=== PATIENT | male | born 1960 | race Caucasian/White ===

== ENCOUNTER → 2018-03-23 | Outpatient (CLI) | payer OTHER ==
--- NOTE | ~2018-03-23 | O ---
[facility] [place] [address] OPERATIVE REPORT Name: RAEJOLEEN Room #: [facility]#: [id number] Admission: 03/23/18 Attend Phys: Rajat Agee MD Discharge: Date of : 58 Report #: [id number] THIS REPORT FOR: //name// CC: Rodrigue Agee DATE OF SERVICE: 03/23/2018 REFERRING PHYSICIAN: Dr. J Carlos Kidd. REASON FOR REFERRAL: Probable tracheal stenosis. CLINICAL HISTORY: The patient is a 57-year-old white male with past history of tracheostomy. He now presents with increasing dyspnea. 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 CT chest shows narrowing and possible tracheal mass in the proximal trachea. POSTOPERATIVE DIAGNOSES: 1. Proximal tracheal stenosis, moderate. 2. Granulation tissue is noted associated with the tracheal stenosis. 3. Otherwise, the rest of the airways including vocal cords, distal trachea, filomena, right and left mainstem bronchus were normal. DESCRIPTION OF PROCEDURE: Following obtained consent and risks and benefits being explained to the patient, which include infection, bleeding, pneumothorax, procedure performed in the endoscopy suite. The patient was given total of 2 mg of Versed, fentanyl 50 mcg IV push. He also received aerosolized 4% lidocaine to the upper airways. 2% lidocaine was then used to the supraglottic airways along with the airways. A flexible fiberoptic bronchoscope was then introduced without difficulty. The epiglottis was normal, vocal cords normal. Proximal trachea was unremarkable. At about 3 cm below the vocal cords, there appears to be moderate tracheal stenosis. It appears elongated. At the base of the tracheal stenosis, approximately at the site of where the prior tracheostomy was placed, there is a granulation tissue obstructing about 70% of the proximal tracheal lumen. Distally, the trachea was normal. Filomena was normal. Right and left mainstem bronchus was normal. No biopsy or washing or brushing was performed. RECOMMENDATIONS: The patient will be referred to a tertiary center for management of tracheal stenosis and probable granulation tissue. [address] [address] OPERATIVE REPORT Name: JOLEEN RAE Room #: [facility]#: [id number] Admission: 03/23/18 Attend Phys: Rajat Agee MD Discharge: Date of : 58 Report #: [id number] These findings were discussed with the patient's along with Dr. J Carlos Kidd. The patient will follow up with Dr. Kidd within the week. Thank you for the referral. <ELECTRONICALLY SIGNED> By: Rajat Agee MD 03/24/18 1705 [id number] Rajat Agee MD /nt
== END | disposition home or self-care (01) ==
LOC: CATH 07:40
DX: J39.8 Other specified diseases of upper respiratory tract (principal); Z93.0 Tracheostomy status; R06.02 Shortness of breath; I48.91 Unspecified atrial fibrillation; K21.9 Gastro-esophageal reflux disease without esophagitis; E03.9 Hypothyroidism, unspecified; Z79.891 Long term (current) use of opiate analgesic; Z79.899 Other long term (current) drug therapy; Z88.0 Allergy status to penicillin; Z87.09 Personal history of other diseases of the respiratory system; Z98.890 Other specified postprocedural states